=== PATIENT | female | born 1960 | race African-American/Black ===

== ENCOUNTER → 2016-07-18 | Outpatient (CLI) | payer MEDICARE ==
[~2016-07-18] MED LIST: ALDACTONE PO; ALDACTONE25 MG PO; ASPIRIN PO; ASTELIN137 MCG INH; ATORVASTATIN CA40 MG PO; COREG12.5 MG PO; COUMADIN5 MG PO; GLUCOPHAGE XR500 MG PO; KCL PO; LASIX PO; LISINOPRIL PO; LISINOPRIL10 MG PO; NASONEX17 GM; NEXIUM PO; NOVOLIN 70100 UNITS/ IM; PROTONIX PO; TOPROL XL PO; TUSSIONEX PENN473 ML PO; VITAMIN B6
[2016-07-18 15:49] LABS: PROTHROMBIN TIME (PATIENT) 44.2 SECONDS (9.6-11.5)
== END | disposition home or self-care (01) ==
LOC: CLAB 15:00
PROVIDERS: Internal Medicine
DX: Z51.81 Encounter for therapeutic drug level monitoring (principal); Z79.01 Long term (current) use of anticoagulants
CPT/HCPCS: 36415; 85610

== ENCOUNTER → 2016-07-20 | Outpatient (CLI) | payer MEDICARE ==
[2016-07-20 13:58] LABS: INR 3.4; PROTHROMBIN TIME (PATIENT) 37.1 SECONDS (9.6-11.5)
== END | disposition home or self-care (01) ==
LOC: CLAB 13:18
PROVIDERS: Internal Medicine
DX: Z51.81 Encounter for therapeutic drug level monitoring (principal); Z79.01 Long term (current) use of anticoagulants
CPT/HCPCS: 36415; 85610

== ENCOUNTER → 2016-07-21 | Outpatient (CLI) | payer MEDICARE ==
[2016-07-21 14:38] LABS: INR 2.1; PROTHROMBIN TIME (PATIENT) 22.8 SECONDS (9.6-11.5)
== END | disposition home or self-care (01) ==
LOC: CLAB 13:44
PROVIDERS: Internal Medicine
DX: Z51.81 Encounter for therapeutic drug level monitoring (principal); Z79.01 Long term (current) use of anticoagulants
CPT/HCPCS: 36415; 85610

== ENCOUNTER → 2016-07-26 | Outpatient (CLI) | payer MEDICARE ==
[2016-07-26 14:12] LABS: INR 1.4; PROTHROMBIN TIME (PATIENT) 14.4 SECONDS (9.6-11.5)
== END | disposition home or self-care (01) ==
LOC: CLAB 13:20
PROVIDERS: Internal Medicine
DX: Z51.81 Encounter for therapeutic drug level monitoring (principal); Z79.01 Long term (current) use of anticoagulants
CPT/HCPCS: 36415; 85610

== ENCOUNTER → 2016-08-01 | Outpatient (CLI) | payer MEDICARE ==
[2016-08-01 14:56] LABS: INR 2.1
[2016-08-01 14:59] LABS: PROTHROMBIN TIME (PATIENT) 22.8 SECONDS (9.6-11.5)
== END | disposition home or self-care (01) ==
LOC: CLAB 13:44
PROVIDERS: Internal Medicine
DX: Z51.81 Encounter for therapeutic drug level monitoring (principal); Z79.01 Long term (current) use of anticoagulants
CPT/HCPCS: 36415; 85610

== ENCOUNTER → 2016-08-09 | Outpatient (CLI) | payer MEDICARE ==
[2016-08-09 14:54] LABS: INR 2.7; PROTHROMBIN TIME (PATIENT) 29.5 SECONDS (9.6-11.5)
== END | disposition home or self-care (01) ==
LOC: CLAB 14:10
PROVIDERS: Internal Medicine
DX: Z51.81 Encounter for therapeutic drug level monitoring (principal); Z79.01 Long term (current) use of anticoagulants
CPT/HCPCS: 36415; 85610

== ENCOUNTER → 2016-08-18 | Outpatient (CLI) | payer MEDICARE ==
[2016-08-18 14:50] LABS: INR 5.5; PROTHROMBIN TIME (PATIENT) 61.7 SECONDS (9.6-11.5)
== END | disposition home or self-care (01) ==
LOC: CLAB 13:40
PROVIDERS: Internal Medicine
DX: Z51.81 Encounter for therapeutic drug level monitoring (principal); Z79.01 Long term (current) use of anticoagulants
CPT/HCPCS: 36415; 85610

== ENCOUNTER → 2016-08-22 | Outpatient (CLI) | payer MEDICARE ==
[2016-08-22 11:28] LABS: INR 2.6; PROTHROMBIN TIME (PATIENT) 27.8 SECONDS (9.6-11.5)
== END | disposition home or self-care (01) ==
LOC: CLAB 10:34
PROVIDERS: Internal Medicine
DX: Z51.81 Encounter for therapeutic drug level monitoring (principal); Z79.01 Long term (current) use of anticoagulants
CPT/HCPCS: 36415; 85610

== ENCOUNTER → 2016-08-25 | Outpatient (CLI) | payer MEDICARE ==
[2016-08-25 14:29] LABS: INR 2.8; PROTHROMBIN TIME (PATIENT) 30.8 SECONDS (9.6-11.5)
== END | disposition home or self-care (01) ==
LOC: CLAB 13:52
PROVIDERS: Internal Medicine
DX: Z51.81 Encounter for therapeutic drug level monitoring (principal); Z79.01 Long term (current) use of anticoagulants
CPT/HCPCS: 36415; 85610

== ENCOUNTER → 2016-08-31 | Outpatient (CLI) | payer MEDICARE ==
[2016-08-31 14:31] LABS: INR 2.6; PROTHROMBIN TIME (PATIENT) 28.8 SECONDS (9.6-11.5)
== END | disposition home or self-care (01) ==
LOC: CLAB 13:52
PROVIDERS: Internal Medicine
DX: Z51.81 Encounter for therapeutic drug level monitoring (principal); Z79.01 Long term (current) use of anticoagulants
CPT/HCPCS: 36415; 85610

== ENCOUNTER → 2016-09-26 | Outpatient (CLI) | payer MEDICARE ==
[2016-09-26 13:51] LABS: INR 1.6; PROTHROMBIN TIME (PATIENT) 17.6 SECONDS (9.6-11.5)
== END | disposition home or self-care (01) ==
LOC: CLAB 13:12
PROVIDERS: Internal Medicine
DX: Z51.81 Encounter for therapeutic drug level monitoring (principal); Z79.01 Long term (current) use of anticoagulants
CPT/HCPCS: 36415; 85610

== ENCOUNTER → 2016-10-18 | Outpatient (CLI) | payer MEDICARE ==
[2016-10-18 11:58] LABS: INR 1.8; PROTHROMBIN TIME (PATIENT) 19.3 SECONDS (9.6-11.5)
== END | disposition home or self-care (01) ==
LOC: CLAB 11:11
PROVIDERS: Internal Medicine
DX: Z51.81 Encounter for therapeutic drug level monitoring (principal); Z79.01 Long term (current) use of anticoagulants
CPT/HCPCS: 36415; 85610

== ENCOUNTER → 2016-10-28 | Outpatient (CLI) | payer MEDICARE ==
[2016-10-28 14:20] LABS: INR 2.9
[2016-10-28 14:22] LABS: PROTHROMBIN TIME (PATIENT) 31.8 SECONDS (10.0-11.7)
== END | disposition home or self-care (01) ==
LOC: CLAB 13:12
PROVIDERS: Internal Medicine
DX: Z51.81 Encounter for therapeutic drug level monitoring (principal); Z79.01 Long term (current) use of anticoagulants
CPT/HCPCS: 36415; 85610

== ENCOUNTER → 2016-11-04 | Outpatient (CLI) | payer MEDICARE ==
[2016-11-04 14:11] LABS: INR 3.6; PROTHROMBIN TIME (PATIENT) 39.4 SECONDS (10.0-11.7)
== END | disposition home or self-care (01) ==
LOC: CLAB 13:15
PROVIDERS: Internal Medicine
DX: Z51.81 Encounter for therapeutic drug level monitoring (principal); Z79.899 Other long term (current) drug therapy
CPT/HCPCS: 36415; 85610

== ENCOUNTER → 2016-11-09 | Outpatient (CLI) | payer MEDICARE ==
[2016-11-09 15:00] LABS: INR 2.3; PROTHROMBIN TIME (PATIENT) 24.9 SECONDS (10.0-11.7)
== END | disposition home or self-care (01) ==
LOC: CLAB 14:22
PROVIDERS: Internal Medicine
DX: Z51.81 Encounter for therapeutic drug level monitoring (principal); Z79.899 Other long term (current) drug therapy
CPT/HCPCS: 36415; 85610

== ENCOUNTER → 2016-11-18 | Outpatient (CLI) | payer MEDICARE ==
[2016-11-18 10:24] LABS: INR 1.6; PROTHROMBIN TIME (PATIENT) 17.5 SECONDS (10.0-11.7)
== END | disposition home or self-care (01) ==
LOC: CLAB 09:32
PROVIDERS: Internal Medicine
DX: I63.9 Cerebral infarction, unspecified (principal)
CPT/HCPCS: 36415; 85610

== ENCOUNTER → 2016-11-23 | Outpatient (CLI) | payer MEDICARE ==
[2016-11-23 09:55] LABS: PROTHROMBIN TIME (PATIENT) 21.5 SECONDS (10.0-11.7)
== END | disposition home or self-care (01) ==
LOC: CLAB 09:05
PROVIDERS: Internal Medicine
DX: Z51.81 Encounter for therapeutic drug level monitoring (principal); I63.9 Cerebral infarction, unspecified; Z79.01 Long term (current) use of anticoagulants
CPT/HCPCS: 36415; 85610

== ENCOUNTER → 2016-12-09 | Outpatient (CLI) | payer MEDICARE ==
[2016-12-09 10:10] LABS: INR 3.1
[2016-12-09 10:14] LABS: PROTHROMBIN TIME (PATIENT) 33.5 SECONDS (10.0-11.7)
== END | disposition home or self-care (01) ==
LOC: CLAB 09:25
PROVIDERS: Internal Medicine
DX: Z51.81 Encounter for therapeutic drug level monitoring (principal); I63.9 Cerebral infarction, unspecified; Z79.01 Long term (current) use of anticoagulants
CPT/HCPCS: 36415; 85610

== ENCOUNTER → 2016-12-14 | Outpatient (CLI) | payer MEDICARE ==
[2016-12-14 10:41] LABS: INR 1.6; PROTHROMBIN TIME (PATIENT) 17.6 SECONDS (10.0-11.7)
== END | disposition home or self-care (01) ==
LOC: CLAB 09:17
PROVIDERS: Internal Medicine
DX: Z51.81 Encounter for therapeutic drug level monitoring (principal); I63.9 Cerebral infarction, unspecified; Z79.01 Long term (current) use of anticoagulants
CPT/HCPCS: 36415; 85610

== ENCOUNTER → 2016-12-14 | Outpatient (CLI) | payer MEDICARE ==
[2016-12-14 10:56] LABS: ALBUMIN SERUM 4.3 g/dL (3.5-5.0); BILIRUBIN,TOTAL 0.5 mg/dL (0.2-2.0); BUN/CREATININE RATIO 21.11; CALCIUM SERUM 9.2 mg/dL (8.4-10.2); CREATININE SERUM 0.9 mg/dL (0.6-1.4); GLOM FILT RATE Estimated 81.7 mL/min (>60); POTASSIUM 4.2 mmol/L (3.5-5.1); PROTEIN TOTAL SERUM 7.4 g/dL (6.0-8.3)
== END | disposition home or self-care (01) ==
LOC: CLAB 09:19
PROVIDERS: Internal Medicine Endocrinology, Diabetes & Metabolism
DX: E11.65 Type 2 diabetes mellitus with hyperglycemia (principal)
CPT/HCPCS: 36415; 80053; 83036; 84443

== ENCOUNTER → 2016-12-20 | Outpatient (CLI) | payer MEDICARE ==
[2016-12-20 12:49] LABS: INR 1.8; PROTHROMBIN TIME (PATIENT) 19.4 SECONDS (10.0-11.7)
== END | disposition home or self-care (01) ==
LOC: CLAB 11:50
PROVIDERS: Internal Medicine
DX: Z51.81 Encounter for therapeutic drug level monitoring (principal); I63.9 Cerebral infarction, unspecified; Z79.01 Long term (current) use of anticoagulants
CPT/HCPCS: 36415; 85610

== ENCOUNTER → 2016-12-29 | Outpatient (CLI) | payer MEDICARE ==
[2016-12-29 11:53] LABS: PROTHROMBIN TIME (PATIENT) 21.4 SECONDS (10.0-11.7)
== END | disposition home or self-care (01) ==
LOC: CLAB 11:09
PROVIDERS: Internal Medicine
DX: Z51.81 Encounter for therapeutic drug level monitoring (principal); I63.9 Cerebral infarction, unspecified; Z79.01 Long term (current) use of anticoagulants
CPT/HCPCS: 36415; 85610

== ENCOUNTER → 2017-01-10 | Outpatient (CLI) | payer MEDICARE ==
[2017-01-10 12:26] LABS: INR 1.5; PROTHROMBIN TIME (PATIENT) 16.5 SECONDS (10.0-11.7)
== END | disposition home or self-care (01) ==
LOC: CLAB 11:33
PROVIDERS: Internal Medicine
DX: Z51.81 Encounter for therapeutic drug level monitoring (principal); I63.9 Cerebral infarction, unspecified; Z79.01 Long term (current) use of anticoagulants
CPT/HCPCS: 36415; 85610

== ENCOUNTER → 2017-01-20 | Outpatient (CLI) | payer MEDICARE ==
[2017-01-20 12:49] LABS: INR 2.2; PROTHROMBIN TIME (PATIENT) 23.4 SECONDS (10.0-11.7)
== END | disposition home or self-care (01) ==
LOC: CLAB 12:16
PROVIDERS: Internal Medicine
DX: Z51.81 Encounter for therapeutic drug level monitoring (principal); I63.9 Cerebral infarction, unspecified; Z79.891 Long term (current) use of opiate analgesic
CPT/HCPCS: 36415; 85610